=== PATIENT | male | born 1965 ===

== ENCOUNTER 2023-01-28 06:42 | Emergency (ER) | payer OTHER ==
[~2023-01-28] VITALS: Ht 177.8 cm; Wt 99.8 kg
[2023-01-28] MEDS ORDERED: WELLBUTRIN XL300 MG (07:35)
[2023-01-28] MEDS ORDERED: AMBIEN10 MG (07:35)
[2023-01-28] MEDS ORDERED: DICLOFENAC POTA50 MG PO (10:54)
[2023-01-28] MEDS ORDERED: ORPHENADRINE C100 MG PO ×2 (10:55→10:57)
== END 2023-01-28 11:19 | disposition home or self-care (01) ==
LOC: ER 06:42
DX: M25.512 Pain in left shoulder (principal)